=== PATIENT | male | born 1985 | race Caucasian/White ===

== ENCOUNTER 2019-05-01 17:06 | Emergency (ER) | payer MEDICAID ==
[~2019-05-01] VITALS: Ht 154.9 cm; Wt 81.8 kg
[2019-05-01 17:09] VITALS: BP 121/68
--- NOTE | 2019-05-01 17:14 | NUR ---
PT AMB TO ER BED 3
--- NOTE | 2019-05-01 17:16 | NUR ---
C/O ALEJA EAR PAIN X 2 WEEKS. MED HX: DENIES . DENIES N/V/D; SKIN IS PINK/WARM/DRY; AAOX4 WITH EVEN AND STEADY GAIT; LUNGS CLEAR BL; HR EVEN AND REGULAR; PT DENIES ANY FEVER, CP, SOB, OR COUGH AT THIS TIME; PATIENT STATES PAIN OF 10/10 AT THIS TIME; VSS; PATIENT POSITIONED FOR COMFORT; HOB ELEVATED; BEDRAILS UP X2; BED DOWN. ER MD MADE AWARE OF PT STATUS.
[2019-05-01 17:29] VITALS: BP 121/68
--- NOTE | 2019-05-01 17:29 | NUR ---
Patient discharged with v/s stable. Written and verbal after care instructions given and explained. Patient alert, oriented and verbalized understanding of instructions. Ambulatory with steady gait. All questions addressed prior to discharge. ID band removed. Patient advised to follow up with PMD. Rx of CERUMENEX given. Patient educated on indication of medication including possible reaction and side effects. Opportunity to ask questions provided and answered.
== END 2019-05-01 17:29 | disposition home or self-care (01) ==
LOC: MED 17:06
DX: H61.23 Impacted cerumen, bilateral (principal)
CPT/HCPCS: 99282

== ENCOUNTER 2022-01-02 08:35 | Emergency (ER) | payer MEDICAID ==
[~2022-01-02] VITALS: Ht 165.1 cm; Wt 81.6 kg
[2022-01-02 08:37] VITALS: BP 155/77
--- NOTE | 2022-01-02 08:40 | NUR ---
36 y/o M abulated to bed 2, pt c/o lower abdominal pain radiating to testicles since this am with dribbling. c/o 08/26 pain pmh: denies
[2022-01-02] MEDS ORDERED: NACL 0.9% 1,000 ML IV SCH (08:55)
[2022-01-02] MEDS ORDERED: MORPHINE SULFATE 4 MG/ML SYR IVP ONE (09:15)
[2022-01-02] MEDS ORDERED: KETOROLAC 15 MG/ML VIAL IVP ONE (09:15)
[2022-01-02 09:27] LABS: BASOPHILS % (AUTO) 0.3 % (0.0-2.0); HEMATOCRIT 46.1 % (36-52); HEMOGLOBIN 15.5 g/dL (12.0-18.0); LYMPHOCYTES # (AUTO) 1.2 K/uL (2.0-11.5); MEAN CORPUSCULAR HEMOGLOBIN 29 pg (27-31); MEAN CORPUSCULAR HGB CONC 34 g/dL (33-37); MEAN CORPUSCULAR VOLUME 87.2 fL (80-94); MONOCYTES # (AUTO) 0.5 K/uL (0.8-1.0); MONOCYTES % (AUTO) 3.5 % (1.7-9.3); NEUTROPHILS # (AUTO) 12.9 K/uL (1.8-7.7); NEUTROPHILS % (AUTO) 88.2 % (42.2-75.2); PLATELET COUNT (AUTO) 261 K/uL (140-450); RED BLOOD CELL COUNT(AUTO) 5.29 MIL/uL (4.20-6.10); RED CELL DISTRIBUTION WIDTH 14.1 % (11.6-13.7); WHITE BLOOD COUNT (AUTO) 14.7 K/uL (4.8-10.8)
[2022-01-02 09:45] LABS: ANION GAP 14.8 (8-16); CARBON DIOXIDE 24.2 mmol/L (21-32); CREATININE 1.2 mg/dL (0.6-1.3); TOTAL BILIRUBIN 0.8 mg/dL (0.0-1.0)
--- NOTE | 2022-01-02 10:40 | NUR ---
US at bedside, performing renal and testicular US
--- NOTE | 2022-01-02 11:05 | NUR ---
walked urine down to lab
[2022-01-02 12:38] LABS: APPEARANCE,URINE CLEAR (CLEAR); BILIRUBIN,URINE NEGATIVE (NEGATIVE); BLOOD, URINE 1+ (NEGATIVE); COLOR,URINE YELLOW (YELLOW); LEUKOCYTE ESTERASE ,URINE NEGATIVE (NEGATIVE); NITRITE, URINE NEGATIVE (NEGATIVE); PH,URINE 7.5 (5.0-9.0); UGLUCOSE NEGATIVE (NEGATIVE)
--- NOTE | 2022-01-02 12:40 | NUR ---
pt ambulated to restroom, placed back on monitor
[2022-01-02 13:15] LABS: RBC,URINE 0-5 /HPF (0-5)
[2022-01-02 13:16] LABS: WBC,URINE 0 /HPF (0-5)
[2022-01-02] MEDS ORDERED: CEPH-588 PO (13:24)
[2022-01-02] MEDS ORDERED: IBUP-2218 PO (13:24)
[2022-01-02 14:00] VITALS: BP 120/79
--- NOTE | 2022-01-02 14:04 | NUR ---
Patient discharged with v/s stable. Written and verbal after care instructions given and explained. Patient alert, oriented and verbalized understanding of instructions. Ambulatory with steady gait. All questions addressed prior to discharge. ID band removed. Patient advised to follow up with PMD. Rx of IBUPROFEN, KEFLEX given. Patient educated on indication of medication including possible reaction and side effects. Opportunity to ask questions provided and answered.
--- NOTE | 2022-01-04 12:59 | NUR ---
LATE ENTRY- IV NORMAL SALINE DISCONTINUED AT 1404.
== END 2022-01-02 14:04 | disposition home or self-care (01) ==
LOC: MED 08:35
DX: N23 Unspecified renal colic (principal); I86.1 Scrotal varices; N13.30 Unspecified hydronephrosis; Z79.899 Other long term (current) drug therapy
CPT/HCPCS: 36415; 76770; 76870; 80053; 81001; 83690; 85025; 87086; 96361; 96374; 96375; 99284; J1885; J2270; J7030; Q0092

== ENCOUNTER 2022-06-08 13:57 | Emergency (ER) | payer MEDICAID ==
[~2022-06-08] VITALS: Ht 154.9 cm; Wt 92.3 kg
[~2022-06-08 13:57] MED LIST: CEPH-588 PO; IBUP-2218 PO
[2022-06-08 14:13] VITALS: BP 149/77
--- NOTE | 2022-06-08 14:20 | NUR ---
PT AMB TO BED 12
[2022-06-08] MEDS ORDERED: BACITRACIN OINT 500 UNITS/GM PKT TP ONE (14:35)
[2022-06-08] MEDS ORDERED: KETOROLAC 30 MG/ML VIAL IM ONE (14:35)
[2022-06-08] MEDS ORDERED: cefTRIAXone 1,000 MG in LIDOCAINE MPF 1% 2.1 ML IM ONE (15:15)
--- NOTE | 2022-06-08 15:23 | NUR ---
per er mid level, non adherent dressing applied to pt l palm. + cms after application.
[2022-06-08] MEDS ORDERED: cefTRIAXone 1,000 MG VIAL ONE (15:25)
[2022-06-08] MEDS ORDERED: LIDOCAINE MPF 1% 5 ML ONE (15:25)
[2022-06-08] MEDS ORDERED: BACI1PAC6 TP (15:46)
[2022-06-08] MEDS ORDERED: CEPH-588 PO (15:46)
[2022-06-08] MEDS ORDERED: IBUP-2213 PO (15:46)
--- NOTE | 2022-06-08 15:58 | NUR ---
36 y/o male bib self, c/o left hand puncture wound, pt states he was trying to drill screw with drill gun yesterday, states he punctured himself with the end of the drill. a&o x4 with even and steady gait. lungs clear bl, heart rate even and regular. pt denies any fever, cp, sob, or cough at this time. pt states pain is 6/10 at this time. patient positioned for comfort. hob elevated. bed down. ermd made aware of pt. pmh: denies nka
[2022-06-08 16:01] VITALS: BP 149/77
--- NOTE | 2022-06-08 16:02 | NUR ---
Patient discharged with v/s stable. Written and verbal after care instructions given and explained. Patient alert, oriented and verbalized understanding of instructions. Ambulatory with steady gait. All questions addressed prior to discharge. ID band removed. Patient advised to follow up with PMD. Rx of bacitracin, keflex, ibuprofen (sent) given. Patient educated on indication of medication including possible reaction and side effects. Opportunity to ask questions provided and answered.
== END 2022-06-08 16:01 | disposition home or self-care (01) ==
LOC: MED 13:57
DX: S61.432A Puncture wound without foreign body of left hand, initial encounter (principal); R03.0 Elevated blood-pressure reading, without diagnosis of hypertension; Z79.899 Other long term (current) drug therapy; X58.XXXA Exposure to other specified factors, initial encounter; Y93.89 Activity, other specified; Y92.89 Other specified places as the place of occurrence of the external cause; Y99.8 Other external cause status
CPT/HCPCS: 73130; 90471; 90715; 96372; 99284; J0696; J1885; J2001

== ENCOUNTER 2022-06-12 12:13 | Emergency (ER) | payer MEDICAID ==
[~2022-06-12] VITALS: Ht 152.4 cm; Wt 92.6 kg
[~2022-06-12 12:13] MED LIST changes: +BACI1PAC6 TP; +IBUP-2213 PO
[2022-06-12 12:25] VITALS: BP 130/75
--- NOTE | 2022-06-12 12:36 | NUR ---
Patient ambulated to bed 10 with steady/even gait
--- NOTE | 2022-06-12 12:40 | NUR ---
36 y/o M BIB self from home c/o wound check. Pt states improvement to wound; requesting work clerance. Denies pain, tenderness, warmth, redness, drainage. Bed locked in lowest position, side rails x 1.
--- NOTE | 2022-06-12 13:09 | NUR ---
PA Howard evaluating pt at bedside
--- NOTE | 2022-06-12 13:30 | NUR ---
Patient discharged with v/s stable. Written and verbal after care instructions given and explained. Patient verbalized understanding. Ambulatory with steady gait. All questions addressed prior to discharge. Advised to follow up with PMD. Work note provided.
== END 2022-06-12 13:30 | disposition home or self-care (01) ==
LOC: MED 12:13
DX: J45.909 Unspecified asthma, uncomplicated (principal); Z00.00 Encounter for general adult medical examination without abnormal findings; Z79.899 Other long term (current) drug therapy
CPT/HCPCS: 99281

== ENCOUNTER 2022-10-02 09:42 | Emergency (ER) | payer MEDICAID ==
[~2022-10-02] VITALS: Ht 162.3 cm; Wt 91.3 kg
[2022-10-02 09:49] VITALS: BP 131/84
[2022-10-02] MEDS ORDERED: PANTOPRAZOLE 40 MG INJ VIAL IVP ONE (11:05)
[2022-10-02 11:24] LABS: BASOPHILS # (AUTO) 0.1 K/uL (0.00-0.22); BASOPHILS % (AUTO) 0.7 % (0.0-2.0); EOSINOPHILS # (AUTO) 0.3 K/uL (0-0.4); EOSINOPHILS % (AUTO) 2.9 % (0.0-4.0); HEMATOCRIT 46.7 % (36-52); HEMOGLOBIN 15.6 g/dL (12.0-18.0); LYMPHOCYTES % (AUTO) 23.4 % (20.5-51.1); MEAN CORPUSCULAR HEMOGLOBIN 29 pg (27-31); MEAN CORPUSCULAR HGB CONC 34 g/dL (33-37); MEAN CORPUSCULAR VOLUME 87.7 fL (80-94); MONOCYTES # (AUTO) 0.5 K/uL (0.8-1.0); NEUTROPHILS # (AUTO) 5.8 K/uL (1.8-7.7); PLATELET COUNT (AUTO) 260 K/uL (140-450); RED BLOOD CELL COUNT(AUTO) 5.32 MIL/uL (4.20-6.10); RED CELL DISTRIBUTION WIDTH 13.9 % (11.6-13.7); WHITE BLOOD COUNT (AUTO) 8.7 K/uL (4.8-10.8)
[2022-10-02 11:30] VITALS: BP 134/75
[2022-10-02 12:02] LABS: ALBUMIN 3.5 g/dL (3.4-5.0); ANION GAP 11.1 (8-16); CARBON DIOXIDE 30.4 mmol/L (21-32); CREATININE 0.9 mg/dL (0.6-1.3); POTASSIUM 3.5 mmol/L (3.5-5.1); TOTAL BILIRUBIN 0.8 mg/dL (0.0-1.0)
[2022-10-02] MEDS ORDERED: OMEP20EC11 PO (12:32)
== END 2022-10-02 12:35 | disposition home or self-care (01) ==
LOC: MED 09:42
DX: K29.70 Gastritis, unspecified, without bleeding (principal); Z79.899 Other long term (current) drug therapy
CPT/HCPCS: 36415; 80053; 83690; 85025; 99284; C9113